=== PATIENT | female | born 1970 | race Caucasian/White ===

== ENCOUNTER 2022-02-15 12:12 | Inpatient (IN) | payer OTHER, SELFPAY ==
[2022-02-15] VITALS (26 sets, daily range): BP systolic 116–185; BP diastolic 71–121; PULSE 45–95; RESP 15–19; TEMP 36.5–36.9; O2SAT 95–100; BMI 29.2; BMI 26.3
--- NOTE | 2022-02-15 | IR_ITS ---
APPROVED REPORT Patient Location: Emergent Magistrate Assistant: AMELIA Moore RT (R) PROCEDURES Right femoral artery cannulation, Right femoral vein cannulation, Left catheterization with ventriculogram, Percutaneous coronary intervention of circumflex artery with 2.5x26 limited drug-eluting stent, Percutaneous coronary intervention of right coronary artery with 3.0 x 18 mm, 2.5 x 38 mm and a 2.5 x 38 mm drug-eluting stents , Perclose closure device. INDICATION Inferior wall ST elevation PA, History of coronary artery disease and PCI to LAD artery presented with chest pain to ER., EKG showed inferior wall ST elevation PA. SCAI INDICATION Inferior wall ST elevation PA Informed consent was obtained prior to the procedure. COMPLICATIONS None Estimated Blood Loss: Less than 10 mls TECHNIQUE There was no a palpable pulse in the radial artery. 1% lidocaine was used to anesthetize the right wrist. Unable to access the radial artery. One percent lidocaine was used to anesthetize the right groin. The right femoral artery was accessed via the Seldinger technique. The right femoral vein was accessed via Seldinger technique. A 6-[place] Citizen sheath was placed in the right femoral artery and 5 [place] Citizen sheath was placed in the right femoral vein. I accessed femoral vein for possible use of temporary pacemaker. . I advanced a JR4 guide catheter and right coronary artery was engaged. Right coronary artery was totally occluded from the proximal segment. Coronary wire was advanced and I was able to cross the lesion. Tip of the wire was in distal RPDA. Lesion was predilated with a 2.5 x 12 mm balloon angioplasty. Angiography showed diffuse moderate to severe disease from ostium to distal RCA. Patient had significant dampening on waveform whenever 6 [place] Citizen guide catheter was engaged in the ostium. Plan was to intervene on right coronary arteries ostium all the way up to the bifurcation. 2.5 x 38 mm drug-eluting stent was advanced and deployed in the distal RCA. 2.5 x 38 mm drug-eluting stent was advanced and deployed in the mid RCA. 3.0 x 18 mm drug-eluting stent was deployed in the proximal RCA. Stents were postdilated from 2.6 mm distally to 2.2 mm proximally with noncompliant balloon angioplasty. Angiogram reviewed showed well-expanded stents, COCO-3 flow in distal vessel and no evidence of dissection or perforation. . JR4 guide was removed and JL4 catheter was advanced. Left main artery was engaged and multiple views were taken. Patient was found to have a 80 to 90% stenosis of the mid circumflex artery. I advanced a EBU 3.5 guide catheter and left main artery was engaged. Coronary wire was advanced and I was able to cross the circumflex artery lesion. Tip of the wire was in distal circumflex artery. 2.5 x 26 mm drug-eluting stent was advanced and deployed in the mid circumflex artery. Stent was postdilated up to 3 mm with noncompliant balloon angioplasty. Angiogram reviewed showed well-expanded stent, COCO-3 flow in distal vessel and no evidence of dissection or perforation.. . EBU guide catheter was removed and pigtail was inserted. Pigtail catheter was advanced into the left ventricle. Left ventriculogram was performed. . Right common femoral arterial sheath was removed and Perclose device was deployed as per standard technique. . At the end of the procedure the patient was transferred to the post-op holding area in stable condition. ANGIOGRAPHIC RESULTS The left main artery Patent The left anterior descending artery Patent stent in mid LAD artery. Diagonal 1 branch originating from the middle of the stent has ostial 70% stenosis. The circumflex artery Mild disease proximally. Mid
--- NOTE | 2022-02-15 12:12 | ECG_ITS ---
APPROVED REPORT Exam: Resting ECG HR:48 bpm ECG Measurements Heart Rate 48 AXES NE 138 P 39 QRSd 93 QRS 18 QT 497 T 127 QTc [address] DEVIATION AND MARKED T-WAVE ABNORMALITY, CONSIDER LATERAL ISCHEMIA [-0.5+ mV T-WAVE IN I/aVL/V5/V6] ABNORMAL ECG UNCONFIRMED REPORT Electronically signed by : Arnaldo Orona MD 02/18/2022 16:51:09
--- NOTE | 2022-02-15 12:22 | PC.WOUNDNOTE ---
powerhouse tender calling in cathode maker team
--- NOTE | 2022-02-15 12:24 | ECG_ITS ---
APPROVED REPORT Exam: Resting ECG HR:46 bpm ECG Measurements Heart Rate 46 AXES UT 128 P 52 QRSd 91 QRS 44 QT 478 T 106 QTc 439 Conclusion [address] BRADY[address]ARDIA [address] ELEVATION, CONSIDER INFERIOR INJURY [MARKED ST ELEVATION W/O NORMALLY INFLECTED T-WAVE IN II/aVF] ACUTE SC WARNING: DATA QUALITY MAY AFFECT INTERPRETATION UNCONFIRMED REPORT Electronically signed by : Arnaldo Orona MD 02/18/2022 16:51:05
--- NOTE | 2022-02-15 12:24 | PC.NURSE ---
second ekg obtained per MD request
--- NOTE | 2022-02-15 12:29 | HMH.EDCP ---
Discharge Plan Disposition Patient Disposition: Admitted As Inpatient Condition: Good Chief Complaint: Chest Pain Clinical Impressions Clinical Impression: ST elevation (STEMI) myocardial infarction Discharge ED Provider: Samuel Craig Chest Pain HPI General Chief Complaint: Chest Pain Stated Complaint: cp Time Seen by Provider: 02/15/22 12:30 Mode of Arrival: Ambulatory Source of Information: Patient and Relative History of Present Illness HPI narrative: cp this am, h/o known cad Onset (ago): hour(s) Duration: constant Activity at onset: during rest Pain location: substernal Severity: moderate Quality: dull Pain radiation: none Relieving factors: nothing Exacerbating factors: nothing Risk Factors for CAD: Smoking Treatments prior to or on arrival for Cardiac Chest Pain: none Related Data Allergies Allergy/AdvReac Type Severity Reaction Status Date / Time No Known Allergies Allergy Verified 02/15/22 12:45 PFSH PFSH Social History Smoking Status: Never smoker alcohol intake: never current occupational status: other ROS Obtained: Yes All systems reviewed & no additional complaints except as documented Physical Exam General General appearance: alert and in no apparent distress Head Head exam: atraumatic and normocephalic Eye Eye exam: Present normal appearance, PERRL and EOMI ENT ENT exam: Present normal exam, normal oropharynx and mucous membranes moist Neck Neck exam: Present normal inspection, full ROM and trachea midline Chest Chest inspection: Present normal inspection and symmetric chest wall rise; Absent tenderness Respiratory Respiratory exam: Present normal lung sounds bilaterally; Absent respiratory distress or wheezes Cardiovascular Cardiovascular exam: Present normal rhythm and bradycardia; Absent irregular rhythm Abdominal Exam Abdominal exam: Present soft; Absent distention, tenderness or guarding Extremities Exam Extremities exam: Present normal inspection and full ROM; Absent tenderness Back Exam Back exam: Present normal inspection and full ROM; Absent tenderness Neurological Exam Neurological exam: Present alert, oriented X3 and CN II-XII intact Psychiatric Psychiatric exam: Present normal affect and normal mood; Absent depressed Skin Skin exam: Present warm, intact and normal color Medical Decision Making Ignacio Inquiry Pt receiving controlled substance: No Vital Signs: 02/15/22 12:12 02/15/22 12:49 02/15/22 12:31 Temperature 98.2 F Temperature Source Oral Pulse Rate 56 L 59 L Pulse Rate [Left Radial] 51 L Respiratory Rate 17 17 Blood Pressure 168/88 H Blood Pressure [Right Arm] 163/92 H Blood Pressure Mean [Right Arm] 115 Blood Pressure Source [Right Arm] Blood Pressure Position [Right Arm] 02 Sat by Pulse Oximetry 96 96 Oxygen Delivery Method Room Air Room Air 02/15/22 12:37 02/15/22 12:41 02/15/22 12:43 Temperature Temperature Source Pulse Rate 48 L 86 45 L Pulse Rate [Left Radial] Respiratory Rate 18 18 16 Blood Pressure 177/83 H 147/112 H 168/82 H Blood Pressure [Right Arm] Blood Pressure Mean [Right Arm] Blood Pressure Source [Right Arm] Blood Pressure Position [Right Arm] 02 Sat by Pulse Oximetry 96 96 95 Oxygen Delivery Method 02/15/22 12:54 02/15/22 12:30 Temperature Temperature Source Pulse Rate 52 L Pulse Rate [Left Radial] 95 H Respiratory Rate 16 18 Blood Pressure 185/84 H Blood Pressure [Right Arm] 139/92 H Blood Pressure Mean [Right Arm] 107 Blood Pressure Source [Right Arm] Automatic Cuff Blood Pressure Position [Right Arm] Supine 02 Sat by Pulse Oximetry 100 98 Oxygen Delivery Method Room Air Lab Data Lab Results 02/15/22 12:25: WBC 16.4 H, RBC 5.26, Hgb 11.6 L, Hct 38.1, MCV 72.5 L, MCH 22.1 L, MCHC 30.5 L, RDW 17.9 H, Plt Count 673 H, MPV 8.1, Neut % (Auto) 59.4, Lymph % (Auto) 32.8, Victoria % (Auto
--- NOTE | 2022-02-15 12:30 | PC.NURSE ---
1225-notified by ER of STEMI alert; asphalt distributor operator notified to page dental laboratory assistant staff 1226-Dee Dee Mckeon, and Vesta all returned call; Dr Lewis aware per ER MD
--- NOTE | 2022-02-15 12:30 | PC.NURSE ---
cath consent signed
--- NOTE | 2022-02-15 12:46 | XR_ITS ---
PROCEDURE INFORMATION: Exam: XR Chest Exam date and time: 02/15/2022 12:42 PM Age: 51 years old Clinical indication: Pain; Radiating; Additional info: Chest pain TECHNIQUE: Imaging protocol: Radiologic exam of the chest. Views: 1 view. COMPARISON: No relevant prior studies available. FINDINGS: Lungs: Unremarkable. No consolidation. Pleural spaces: Unremarkable. No pleural effusion. No pneumothorax. Heart/Mediastinum: Unremarkable. No cardiomegaly. Bones/joints: Unremarkable. IMPRESSION: No acute findings.
--- NOTE | 2022-02-15 12:48 | PC.NURSE ---
remaining at bedside. pt condition unchanged
[2022-02-15 12:54] LABS: Basophils # 0.2 K/mm3 (0-0.2); Basophils % 1.5 % (0.1-2.0); Eosinophils # 0.3 K/mm3 (0.0-0.4); Eosinophils % 1.6 % (0.1-12.0); Hematocrit 38.1 % (37.0-47.0); Hemoglobin 11.6 g/dL (12.2-16.2); Lymphocytes # 5.4 K/mm3 (0.7-4.5); Lymphocytes % 32.8 % (10-50); Mean Corpuscular HGB Conc 30.5 g/dL (31.8-35.4); Mean Corpuscular Hemoglobin 22.1 pg (27.0-31.2); Mean Corpuscular Volume 72.5 fl (81-99); Mean Platelet Volume 8.1 fl (7.4-10.4); Monocytes # 0.8 K/mm3 (0.1-1.0); Monocytes % 4.7 % (1.7-9.3); Neutrophils # 9.7 K/mm3 (1.8-7.8); Neutrophils % 59.4 % (37.0-80.0); Platelet Count 673 K/mm3 (142-424); Red Blood Count 5.26 M/mm3 (4.20-5.40); Red Cell Distribution Width 17.9 % (11.5-17.5); White Blood Count 16.4 K/mm3 (4.8-10.8)
[2022-02-15 12:56] LABS: MANUAL DIFFERENTIAL MANUAL DIFFERENTIAL (MANUAL DIFF)
--- NOTE | 2022-02-15 13:00 | PC.NURSE ---
pt to airport maintenance laborer via stretcher
[2022-02-15 13:18] LABS: Anion Gap 15.7 mEq/L (5-15); Blood Urea Nitrogen 9 mg/dl (7-17); Calcium 9.6 mg/dl (8.4-10.2); Carbon Dioxide 20 mmol/L (22.0-30.0); Chloride 105 mmol/L (98-107); Creatinine Clearance Estimated 80 mL/min (50-200); Estimated Glomerular Filt Rate 66 ml/min (>60); GFR (African American) 80 ML/MIN (>60); Glucose 212 mg/dl (74-100); Potassium 3.7 mmoL/L (3.5-5.1); Sodium 137 mmol/L (136-145)
[2022-02-15 13:29] LABS: Eosinophils % 1 % (0-3); Hypochromasia 2+; Lymphocytes % 34 % (10-50); Monocytes % 12 % (2-9); Neutrophils % 52 % (42-76); Nucleated Red Blood Cells 1; Platelet Estimate Slight Increase; Total Cells Counted 100
[2022-02-15 13:30] LABS: Anisocytosis 1+; Microcytosis 1+; Troponin I 0.06 ng/ml (0.00-0.034)
--- NOTE | 2022-02-15 13:39 | EXP.PHA.VTE ---
[facility] Pharmacy VTE Monitoring Patient Demographics Admission date: 02/15/22 Report Date: 02/15/22 Time: 13:39 Patient Allergies No Known Allergies Allergy (Verified 02/15/22 12:45) Height: 1.52 m Weight: 68.039 kg Current Active Problems (Updated 02/15/22 @ 12:35 by Samuel Craig MD) ST elevation (STEMI) myocardial infarction (Acute) VTE Risk Labs: VTE Related Lab Results Hgb 11.6 g/dL (12.2-16.2) L 02/15/22 12:25 Hct 38.1 % (37.0-47.0) 02/15/22 12:25 Plt Count 673 K/mm3 (142-424) H 02/15/22 12:25 BUN 9 mg/dl (7-17) 02/15/22 12:25 Creatinine 0.90 mg/dl (0.52-1.04) 02/15/22 12:25 Estimated Creat Clear 80 mL/min (50-200) 02/15/22 12:25 Was VTE Risk Assessment Performed: No Clinical Trial Participant: No Prophylaxis VTE Prophylaxis Ordered?: Yes Types of VTE Prophylaxis: TEDS Knee High Location of Applied Device: Bilateral Lower Extremeties
[2022-02-15 14:59] LABS: CATHL Activated Clotting Time > 400 SEC (74-125)
--- NOTE | 2022-02-15 17:10 | PC.NURSE ---
Pt arrived to the floor at this time
--- NOTE | 2022-02-15 19:40 | PC.NURSE ---
Pt is A/Ox4. She has a dressing to the right groin. She has complained of tighting in the chest since she has woken up. I called cards and got pain medication. Its from the stents placed. Will continue to monitor pts pain.
[2022-02-16] VITALS: PULSE 70
[2022-02-16 04:00] VITALS: BP 156/89; PULSE 60; PULSE 67; RESP 17; TEMP 36.9; O2SAT 98
--- NOTE | 2022-02-16 04:20 | PC.NURSE ---
pt has rested this shift. A&OX4. dressing to groin C/D/I. complaints of tightening chest pain at start of shift, medicated per aug, no complaints of pain since then. NSR to sinus arrhythmia on tele. CB in reach.
[2022-02-16 04:22] VITALS: BMI 25.9
[2022-02-16 08:00] VITALS: BP 156/91; PULSE 69; PULSE 70; RESP 18; TEMP 36.6; O2SAT 96
[2022-02-16 09:12] LABS: Basophils % 0.2 % (0.1-2.0); Eosinophils % 0.3 % (0.1-12.0); Hematocrit 32.4 % (37.0-47.0); Lymphocytes # 1.2 K/mm3 (0.7-4.5); Mean Corpuscular HGB Conc 30.2 g/dL (31.8-35.4); Mean Corpuscular Hemoglobin 22.2 pg (27.0-31.2); Mean Corpuscular Volume 73.6 fl (81-99); Mean Platelet Volume 7.8 fl (7.4-10.4); Monocytes # 0.6 K/mm3 (0.1-1.0); Monocytes % 5.2 % (1.7-9.3); Neutrophils # 10.4 K/mm3 (1.8-7.8); Neutrophils % 84.4 % (37.0-80.0); Platelet Count 460 K/mm3 (142-424); Red Blood Count 4.39 M/mm3 (4.20-5.40); Red Cell Distribution Width 17.9 % (11.5-17.5); White Blood Count 12.3 K/mm3 (4.8-10.8)
--- NOTE | 2022-02-16 09:15 | PC.NURSE ---
courtesy tech round: Pt was asleep. I asked if she needed anything and no requests were voiced at this time.
[2022-02-16 09:22] LABS: Albumin Level 3.7 g/dl (3.5-5.0); Albumin/Globulin Ratio 1.2 (1.1-1.8); Bilirubin,Total 0.6 mg/dl (0.2-1.3); Blood Urea Nitrogen 6 mg/dl (7-17); Carbon Dioxide 22 mmol/L (22.0-30.0); Chloride 108 mmol/L (98-107); Globulin 3.1 g/dL (1.3-3.2); Total Protein,Serum 6.8 g/dl (6.3-8.2)
[2022-02-16 09:28] LABS: Hemoglobin 9.8 g/dL (12.2-16.2)
[2022-02-16 09:37] LABS: Alanine Aminotransferase 43 U/L (12-78); Alkaline Phosphatase 94 U/L (38-126); Anion Gap 8.7 mEq/L (5-15); Aspartate Amino Transferase 252 U/L (14-36); Calcium 8.7 mg/dl (8.4-10.2); Creatinine Clearance Estimated 150 mL/min (50-200); Estimated Glomerular Filt Rate 131 ml/min (>60); GFR (African American) 158 ML/MIN (>60); Glucose 127 mg/dl (74-100); Potassium 3.7 mmoL/L (3.5-5.1); Sodium 135 mmol/L (136-145)
--- NOTE | 2022-02-16 10:58 | EXP.HP ---
History of Present Illness *Admission Date: 02/15/22 *Reason for visit:: chest pain *History of present illness: this patient presented to [facility] Complaint: Chest Pain Stated Complaint: cp Time Seen by Provider: 02/15/22 12:30 Mode of Arrival: Ambulatory Source of Information: Patient and Relative History of Present Illness HPI narrative: cp this am, h/o known cad Onset (ago): hour(s) Duration: constant Activity at onset: during rest Pain location: substernal Severity: moderate Quality: dull Pain radiation: none Relieving factors: nothing Exacerbating factors: nothing Risk Factors for CAD: Smoking Treatments prior to or on arrival for Cardiac Chest Pain and went to poultry farm laborer ? 1% lidocaine was used to anesthetize the right wrist.? Unable to access the radial artery. One percent lidocaine was used to anesthetize the right groin. The right femoral artery was accessed via the Seldinger technique. The right femoral vein was accessed via Seldinger technique. A 6-[place]ian sheath was placed in the right femoral artery and 5 Brazilian sheath was placed in the right femoral vein.? I accessed femoral vein for possible use of temporary pacemaker. . I advanced a JR4 guide catheter and right coronary artery was engaged. Right coronary artery was totally occluded from the proximal segment. Coronary wire was advanced and I was able to cross the lesion. Tip of the wire was in distal RPDA. Lesion was predilated with a 2.5 x 12 mm balloon angioplasty. Angiography showed diffuse moderate to severe disease from ostium to distal RCA. Patient had significant dampening on waveform whenever 6 Brazilian guide catheter was engaged in the ostium. Plan was to intervene on right coronary arteries ostium all the way up to the bifurcation. 2.5 x 38 mm drug-eluting stent was advanced and deployed in the distal RCA. 2.5 x 38 mm drug-eluting stent was advanced and deployed in the mid RCA. 3.0 x 18 mm drug-eluting stent was deployed in the proximal RCA. Stents were postdilated from 2.6 mm distally to 2.2 mm proximally with noncompliant balloon angioplasty. Angiogram reviewed showed well-expanded stents, COCO-3 flow in distal vessel and no evidence of dissection or perforation. . JR4 guide was removed and JL4 catheter was advanced. Left main artery was engaged and multiple views were taken. Patient was found to have a 80 to 90% stenosis of the mid circumflex artery. I advanced a EBU 3.5 guide catheter and left main artery was engaged. Coronary wire was advanced and I was able to cross the circumflex artery lesion. Tip of the wire was in distal circumflex artery. 2.5 x 26 mm drug-eluting stent was advanced and deployed in the mid circumflex artery. Stent was postdilated up to 3 mm with noncompliant balloon angioplasty. Angiogram reviewed showed well-expanded stent, COCO-3 flow in distal vessel and no evidence of dissection or perforation.. . EBU guide catheter was removed and pigtail was inserted.? Pigtail catheter was advanced into the left ventricle. Left ventriculogram was performed. . Right common femoral arterial sheath was removed and Perclose device was deployed as per standard technique. . At the end of the procedure the patient was transferred to the post-op holding area in stable condition.? ANGIOGRAPHIC RESULTS The left main artery Patent The left anterior descending artery Patent stent in mid LAD artery.? Diagonal 1 branch originating from the middle of the stent has ostial 70% stenosis. The circumflex artery Mild disease proximally.? Mid circumflex artery has 80 to 90% calcified stenosis.? OM branches are patent. The right coronary artery Totally occluded from the proximal segment. ?Patient was found to have a significant disease from proximal to distal RCA after balloon angioplasty. The RODRIGUEZ ventriculogram reveals EF 45 to 50%.? Basal inferior hypokinesia. The left ventricular end-diastolic pressure 22 mmHg No evidence of aortic valve stenosis. No evid
--- NOTE | 2022-02-16 11:20 | HMH.PHAINT1 ---
Pharmacy Intervention Comments: PATIENT STATES THAT SHE DOES NOT TAKE ANY MEDICATIONS AT HOME. MEDICATION RECONCILIATION COMPLETE.
[2022-02-16 12:00] VITALS: BP 163/85; PULSE 60; PULSE 66; RESP 16; TEMP 36.8; O2SAT 90
[2022-02-16 16:00] VITALS: BP 131/76; PULSE 65; PULSE 71; RESP 16; TEMP 37.1; O2SAT 96
--- NOTE | 2022-02-16 19:19 | PC.NURSE ---
Pt is A/Ox4. She took a shower today. She has been sleeping most of the day. She has eaten and tolerated it well. She stated that she felt nauseous, and I gave her zofran. She said that it has subsided.
[2022-02-16 20:00] VITALS: BP 163/92; PULSE 60; PULSE 67; RESP 17; TEMP 37.4; O2SAT 97; O2SAT 98
[2022-02-17] VITALS: BP 158/68; PULSE 66; PULSE 80; RESP 17; TEMP 37.3; O2SAT 98
[2022-02-17 04:00] VITALS: BP 140/92; PULSE 60; PULSE 68; RESP 17; TEMP 37.1; O2SAT 98
[2022-02-17 04:32] VITALS: BMI 24.3
--- NOTE | 2022-02-17 05:01 | PC.NURSE ---
no change from previous assessment; pt slept well through the night, VSS, no complaints of pain, telemetry reveals NSR with prolonged QT at .44, no other issues at this time. right groin cath site with dressing intact, no drainage or hematoma noted
--- NOTE | 2022-02-17 07:30 | CA_ITS ---
APPROVED REPORT EXAM: Comprehensive 2D, Doppler, and color-flow Echocardiogram Air Traffic Control Specialist: Aishwarya Jarvis RVT Ht: 5 ft 4 in Wt: 156lbs BSA: 1.76 BP: 156/91 mmHg Indications: CP,STEMI,SMOKER 2D Dimensions LVOT 1.89 cm (M/F) 1.5-2.5 LA Volume 44.90 mL LA Volume Index 25.51 mL/m2 (M/F) 16-34 M-Mode Dimensions RVDd 2.43 cm (0.9-2.6) LA Diam 3.59 cm (1.9-4.0) LVDd 4.39 cm (3.5-5.7) Ao Diam 2.78 cm (2.0-3.7) LVDs 3.03 cm (3.5-5.7) IVSd 0.82 cm (0.6-1.1) PWd 0.68 cm (0.6-1.1) EF (Teich) 58.80% FS 31.00% EDV (Teich) 87.20 mL TAPSE 1.93 (<1.7) ESV (Teich) 35.90 mL LV Diastology E Decel Time 213.00 (160-240 msec) E/A Ratio 0.8 MED E' 7.10 (< 7 cm/sec) E'/MED E' Ratio 9.66 (>14) LAT E' 8.50 (<10 cm/sec) E/LAT E' Ratio 8.07 (>14) Aortic Valve AO Peak GR. 3.40 mmHg Mitral Valve MV E Max Moncho. 69.00 (40-130 cm/s) MV A Velocity 84.00 (40-130 cm/s) E/A Ratio 0.81 MV Decel. Time 213.00 (160-240 ms) MV PHT 62.00 ms Pulmonary Valve PV Peak Velocity 69.00 (50-150 cm/s) Tricuspid Valve TR P. Velocity 225.00 cm/s RAP Estimate 10.00 mmHg RVSP 30.20 mmHg Left Ventricle Left atrium is mildly enlarged, left ventricle is normal size mild concentric left ventricular hypertrophy, estimated ejection fraction 50%, there is moderate inferior basal wall hypokinesis. Grade 1 diastolic dysfunction seen without tissue Doppler evidence of raise left atrial pressure. Right Ventricle Right atrium and right ventricle are mildly enlarged with normal contractility. Aortic Valve Aortic valve is minimally thickened and fibrosed there is no aortic stenosis or aortic insufficiency. Mitral Valve Mitral valve is grossly normal, there is trace mitral regurgitation. Tricuspid Valve Tricuspid valve grossly normal, there is trace tricuspid regurgitation, tricuspid regurgitation jet velocity is inadequate for calculation of the right ventricular systolic pressure. Pulmonic Valve Pulmonic valve is poorly visualized. Great Vessels Aortic root is normal size. Inferior vena cava is normal size with normal inspiratory collapse. Pericardium No significant pericardial effusion noted. Conclusion 1. Mild biatrial enlargement, normal left ventricular size, mild concentric left ventricular hypertrophy, estimated ejection fraction 50% with segmental wall motion abnormality described above, grade 1 diastolic dysfunction seen without tissue Doppler evidence of raise left atrial pressure. 2. Mildly enlarged right ventricle with normal contractility. 3. Trace mitral and tricuspid regurgitation. 4. No significant pericardial effusion noted. 5. Inferior vena cava normal size with normal inspiratory collapse. Electronically signed by : Lucas Taylor MD 02/17/2022 20:16:43
[2022-02-17 07:47] VITALS: BP 144/93; PULSE 92; RESP 16; TEMP 36.9; O2SAT 98
[2022-02-17 08:00] VITALS: PULSE 63
--- NOTE | 2022-02-17 09:49 | EXP.CARD.CON ---
History of Present Illness History of Present Illness Consult date: 02/17/22 Chief complaint: stemi History of present illness: 51 year old female presented to ED on 02/15 with stemi. was taken to laborer fryer farm, see report below: IMPRESSION Significant coronary artery disease Patent stent in LAD artery Percutaneous coronary intervention of circumflex artery with 2.5x26 limited drug-eluting stent Percutaneous coronary intervention of right coronary artery with 3.0 x 18 mm, 2.5 x 38 mm and a 2.5 x 38 mm drug-eluting stents PLAN 1. Standard post cath care 2. Aspirin, Brilinta and statin 3. Add beta-breanna if present is not bradycardic 4. Add ARB when blood pressure is stable. 5. Advised to quit smoking 6. Advised for lifestyle and diet modification 7. Advised for strict glucose, lipid and blood pressure control. 8. Explained the importance of medication compliance. [facility] Medical History (Updated 02/17/22 @ 06:10 by Maikol Sidhu MD) History of left heart catheterization (LHC) Surgical History (Updated 02/15/22 @ 19:27 by Zoie Sanchez RN) Hx of heart artery stent Family History (Updated 02/15/22 @ 19:29 by Zoie Sanchez RN) Other Family history of cancer Family history of diabetes mellitus type II Family history of myocardial infarction Social History (Updated 02/15/22 @ 17:41 by Samuel Craig MD) Smoking Status: Never smoker alcohol intake: never current occupational status: other Review of Systems Review of Systems Review of systems:: pertinent systems reviewed and negative unless documented below Constitutional Constitutional: Reports system reviewed and no additional complaints, except as documented Eyes Eyes: Reports system reviewed and no additional complaints, except as documented ENT Ears, Nose, Mouth, and Throat: Reports system reviewed and no additional complaints, except as documented *Cardiovascular Cardiovascular: Reports system reviewed and no additional complaints, except as documented *Respiratory Respiratory: Reports system reviewed and no additional complaints, except as documented *Gastrointestinal Gastrointestinal: Reports system reviewed and no additional complaints, except as documented *Genitourinary Genitourinary: Reports system reviewed and no additional complaints, except as documented *Musculoskeletal Musculoskeletal: Reports system reviewed and no additional complaints, except as documented *Neurologic Neurologic: Reports system reviewed and no additional complaints, except as documented, Denies behavioral changes and Denies localized weakness Psychiatric Psychiatric: Denies behavioral changes Endocrine Endocrine: Reports system reviewed and no additional complaints, except as documented Allergic/Immunologic Allergic/Immunologic: Reports system reviewed and no additional complaints, except as documented Exam Data for Last 24 hours Vital signs and Labs for Last 24 Hours: Temp Pulse Resp BP Pulse Ox 98.5 F 92 H 16 144/93 H 98 02/17/22 07:47 02/17/22 07:47 02/17/22 07:47 02/17/22 07:47 02/17/22 07:47 I & O for Last 24 hours: Intake & Output 02/14/22 02/15/22 02/16/22 02/17/22 23:59 23:59 23:59 23:59 Intake Total 120 / 120 1270 / 1270 Output Total 0 / 0 700 / 700 0 / 0 Balance 120 / 120 570 / 570 0 / 0 Weight 158 lb 3 oz 156 lb 1 oz 146 lb 2 oz Constitutional Constitutional: no acute distress *Routine Respiratory Exam Respiratory: Present CTA bilaterally and symmetric chest movement *Routine Cardiovascular Exam Cardiovascular: Present RRR, Normal S1 and Normal S2 *Routine Abdominal Exam Abdominal: Present soft and normoactive bowel sounds; Absent tenderness *Routine Extremities Exam Extremities: Present full ROM and normal capillary refill; Absent edema *Routine Skin Exam Skin: Present intact, dry and warm Detailed Neck Exam: Thyroids Thyroid: Absent bruit Meds Home Medications and Allergies Home Medications Medication In
[2022-02-17 12:00] VITALS: BP 138/76; PULSE 67; PULSE 69; RESP 18; TEMP 36.8; O2SAT 98
[2022-02-17 13:40] VITALS: BMI 24.3
--- NOTE | 2022-02-17 14:50 | PC.NURSE ---
PT IS RESTING IN BED. NO COMPLAINTS OF DISCOMFORT. EATING AND DRINKING WELL. NSR ON TELEMETRY. LUNG SOUNDS CLEAR. ABDOMEN SOFT/NON TENDER WITH ACTIVE BOWEL SOUNDS. PT AMBULATES TO THE BATHROOM. WILL CONTINUE TO MONITOR.
--- NOTE | 2022-02-17 15:50 | EXP.DC.SUM ---
General Admission date:: 02/15/22 Discharge date: 02/17/22 HPI HPI HPI: this patient presented to [facility] Complaint: Chest Pain Stated Complaint: cp Time Seen by Provider: 02/15/22 12:30 Mode of Arrival: Ambulatory Source of Information: Patient and Relative History of Present Illness HPI narrative: cp this am, h/o known cad Onset (ago): hour(s) Duration: constant Activity at onset: during rest Pain location: substernal Severity: moderate Quality: dull Pain radiation: none Relieving factors: nothing Exacerbating factors: nothing Risk Factors for CAD: Smoking Treatments prior to or on arrival for Cardiac Chest Pain and went to medical laboratory technicians ? 1% lidocaine was used to anesthetize the right wrist.? Unable to access the radial artery. One percent lidocaine was used to anesthetize the right groin. The right femoral artery was accessed via the Seldinger technique. The right femoral vein was accessed via Seldinger technique. A 6-Nepalese sheath was placed in the right femoral artery and 5 Nepalese sheath was placed in the right femoral vein.? I accessed femoral vein for possible use of temporary pacemaker. . I advanced a JR4 guide catheter and right coronary artery was engaged. Right coronary artery was totally occluded from the proximal segment. Coronary wire was advanced and I was able to cross the lesion. Tip of the wire was in distal RPDA. Lesion was predilated with a 2.5 x 12 mm balloon angioplasty. Angiography showed diffuse moderate to severe disease from ostium to distal RCA. Patient had significant dampening on waveform whenever 6 Nepalese guide catheter was engaged in the ostium. Plan was to intervene on right coronary arteries ostium all the way up to the bifurcation. 2.5 x 38 mm drug-eluting stent was advanced and deployed in the distal RCA. 2.5 x 38 mm drug-eluting stent was advanced and deployed in the mid RCA. 3.0 x 18 mm drug-eluting stent was deployed in the proximal RCA. Stents were postdilated from 2.6 mm distally to 2.2 mm proximally with noncompliant balloon angioplasty. Angiogram reviewed showed well-expanded stents, COCO-3 flow in distal vessel and no evidence of dissection or perforation. . JR4 guide was removed and JL4 catheter was advanced. Left main artery was engaged and multiple views were taken. Patient was found to have a 80 to 90% stenosis of the mid circumflex artery. I advanced a EBU 3.5 guide catheter and left main artery was engaged. Coronary wire was advanced and I was able to cross the circumflex artery lesion. Tip of the wire was in distal circumflex artery. 2.5 x 26 mm drug-eluting stent was advanced and deployed in the mid circumflex artery. Stent was postdilated up to 3 mm with noncompliant balloon angioplasty. Angiogram reviewed showed well-expanded stent, COCO-3 flow in distal vessel and no evidence of dissection or perforation.. . EBU guide catheter was removed and pigtail was inserted.? Pigtail catheter was advanced into the left ventricle. Left ventriculogram was performed. . Right common femoral arterial sheath was removed and Perclose device was deployed as per standard technique. . At the end of the procedure the patient was transferred to the post-op holding area in stable condition.? ANGIOGRAPHIC RESULTS The left main artery Patent The left anterior descending artery Patent stent in mid LAD artery.? Diagonal 1 branch originating from the middle of the stent has ostial 70% stenosis. The circumflex artery Mild disease proximally.? Mid circumflex artery has 80 to 90% calcified stenosis.? OM branches are patent. The right coronary artery Totally occluded from the proximal segment. ?Patient was found to have a significant disease from proximal to distal RCA after balloon angioplasty. The RODRIGUEZ ventriculogram reveals EF 45 to 50%.? Basal inferior hypokinesia. The left ventricular end-diastolic pressure 22 mmHg No evidence of aortic valve stenosis. No evidence of significant mitral regurg
[2022-02-17 16:00] VITALS: PULSE 68
--- NOTE | 2022-02-17 18:00 | PC.NURSE ---
PT WILL BE DISCHARGED HOME BUT WILL NEED TO COME BACK TO CLINIC [facility] TOMORROW TO GRADE CHECKER HER PRESCRIPTIONS SO THE INSURANCE WILL PAY. PT WAS GIVEN THE 1 MONTH FREE BRILLINTA AND SHE WILL GET A DOSE OF ATORVASTATIN BEFORE DISCHARGE.
--- NOTE | 2022-02-19 13:36 | CARE MANAGER ---
Spoke with patient related to hospital discharge. She states she is feeling better. She is aware of her follow up appointments and denies any questions or concerns. JHONATAN Becerra
== END 2022-02-17 18:39 | disposition home or self-care (01) | DRG 246 ==
LOC: ER 12:48 → CATHLAB 12:52 → 2ND 12:53
PROVIDERS: Admitting Provider Emergency Medicine; Emergency Provider Emergency Medicine; Referring Provider Internal Medicine Interventional Cardiology; Visit Provider Emergency Medicine
PROC: 027137Z Dilation of Coronary Artery, Two Arteries with Four or More Drug-eluting Intraluminal Devices, Percutaneous Approach (ICD-10-PCS; principal; 2022-02-15 12:35)
DX: I21.19 ST elevation (STEMI) myocardial infarction involving other coronary artery of inferior wall (principal); I25.10 Atherosclerotic heart disease of native coronary artery without angina pectoris; I10 Essential (primary) hypertension; F17.210 Nicotine dependence, cigarettes, uncomplicated; Z79.899 Other long term (current) drug therapy; Z82.49 Family history of ischemic heart disease and other diseases of the circulatory system; I25.82 Chronic total occlusion of coronary artery
CPT/HCPCS: 36415; 71045; 80048; 80053; 84484; 85007; 85025; 85347; 92928; 92941; 93005; 93306; 93458; 99152; 99153; C1725; C1760; C1769; C1876; C1894; C9600; C9606; C9803; J1644; J2405; Q9967; U0003; U0005